=== PATIENT | female | born 1945 | race Caucasian/White ===

== ENCOUNTER 2023-05-02 12:28 | Emergency (ER) | payer MEDICARE, SELFPAY ==
[2023-05-02 12:55] VITALS: BP 147/70; PULSE 103; RESP 14; TEMP 36.1; O2SAT 97
--- NOTE | 2023-05-02 13:44 | ED.GENADULT ---
HPI - General Adult General Chief complaint: Eye Problems Stated complaint: Right Eye Irritation Time Seen by Provider: 05/02/23 13:44 Source: patient Mode of arrival: ambulatory Limitations: no limitations History of Present Illness HPI narrative: 77-year-old female patient presents to the [facility] with complaints of right eye irritation that started yesterday. Patient states she woke up with the pain. Denied denies any recent trauma to her eye that she is aware of. Patient states she does have sensitivity to the light and feels that there is something in her eye. Related Data Home Medications Medication Instructions Recorded Confirmed allopurinol 100 mg tablet mg 05/02/23 atorvastatin 10 mg tablet mg 05/02/23 blood sugar diagnostic (OneTouch 05/02/23 05/02/23 Verio test strips) dulaglutide 0.75 mg/0.5 mL mg subcut 05/02/23 subcutaneous [facility] glipizide 5 mg tablet, extended mg PO 05/02/23 release 24 hr lancets 33 gauge (OneTouch Delica 05/02/23 05/02/23 Plus Lancet) montelukast 10 mg tablet mg 05/02/23 olmesartan 40 tablet 05/02/23 mg-hydrochlorothiazide 12.5 mg tablet sitagliptin phos 50 mg-metformin tablet PO 05/02/23 ER 1,000 mg tablet,extend rel 24h mp (Janumet XR) Allergies Allergy/AdvReac Type Severity Reaction Status Date / Time cephalexin Allergy Rash Verified 05/02/23 13:21 Review of Systems Review of Systems: CONSTITUTIONAL: Denies fever, chills, or sweats. EYES: Denies visual changes, redness, or discharge. Positive pain and sensitivity to light in the right eye ENT: Denies rhinorrhea, congestion, sore throat, or otalgia. CARDIOVASCULAR: Denies chest pain, palpitations, or edema. RESPIRATORY: Denies cough or dyspnea. GASTROINTESTINAL: Denies abdominal pain, nausea, vomiting, or diarrhea. GENITOURINARY: Denies dysuria or hematuria. SKIN: Denies rash or itching. MUSCULOSKELETAL: Denies back pain, joint pain, or myalgia. NEUROLOGIC: Denies headache, numbness, or weakness. PSYCHIATRIC: Denies anxiety or depression. PMF Comments At the time of my signature I agree with nursing past medical history, surgical, social, and family history. There is no relevant family history pertinent to the presenting complaint. Exam Narrative: Wood's lamp. There is a corneal abrasion noted to the 1:00 a.m. area of the right cornea. GENERAL: Well-appearing, well-nourished, and in no acute distress. HEAD: Normocephalic, atraumatic. EYES: PERRLA and EOM intact without limitation or complaint of pain, no periorbital soft tissue swelling ,no erythema, warmth or tenderness noted, no obvious deformity. No crusting or swelling.no tearing or draining.No photophobia. No nystagmus No FB or lesion on lid eversion. Corneas grossly clear, no obvious FB or hyphens/hypopyon. No injection to sclera. Lids and lashes clear. ENT: Nares clear, no rhinorrhea or epistaxis. Mucous membranes moist. NECK: Supple. No lymphadenopathy CHEST: Clear to auscultation. No respiratory distress. HEART: Regular rate and rhythm. No murmur heard. Normal peripheral pulses. ABDOMEN: Soft, nontender, nondistended, normal active bowel sounds. EXTREMITIES: Normal range of motion. No edema. SKIN: Warm, dry, no rash. NEURO: No focal deficits. Alert and oriented x3. Course Course Level of Care: Express Care Visit Vital Signs Vital signs: Vital Signs Temperature 36.1 C L 05/02/23 12:55 Pulse Rate 103 H 05/02/23 12:55 Respiratory Rate 14 05/02/23 12:55 Blood Pressure 147/70 H 05/02/23 12:55 Pulse Oximetry 97 05/02/23 12:55 Oxygen Delivery Room Air 05/02/23 12:55 Temperature 36.1 C L 05/02/23 12:55 Pulse Rate 103 H 05/02/23 12:55 Respiratory Rate 14 05/02/23 12:55 Blood Pressure 147/70 H 05/02/23 12:55 Pulse Oximetry 97 05/02/23 12:55 Oxygen Delivery Room Air 05/02/23 12:55 Vital signs reviewed. The patient has been informed that they may have
== END 2023-05-02 14:02 | disposition home or self-care (01) ==
PROVIDERS: Emergency Provider Nurse Practitioner Family; PCP Nurse Practitioner Family
DX: S05.01XA Injury of conjunctiva and corneal abrasion without foreign body, right eye, initial encounter (principal); X58.XXXA Exposure to other specified factors, initial encounter
CPT/HCPCS: 99203; A9270; G0463